=== PATIENT | female | born 2000 | race Caucasian/White ===

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

== ENCOUNTER → 2021-03-10 | Outpatient (CLI) | payer BC ==
--- NOTE | 2021-03-10 22:18 | US ---
EXAMINATION TYPE: US pelvis complete transvag DATE OF EXAM: 03/10/2021 COMPARISON: NONE CLINICAL HISTORY: N92.6 Irregular menstruation; R19.09. Irregular menses TECHNIQUE: Transvaginal (TV) and Transabdominal (TA) . Transabdominal sonographic images of the pel vis were acquired. Transvaginal sonographic images were medically necessary to better assess the fol lowing anatomy: Ovaries, endometrium Date of LMP: 02/03/2021, G0 EXAM MEASUREMENTS: Uterus: 7.2 x 4.0 x 3.5 cm Endometrial Stripe: 1.0 cm Right Ovary: 4.1 x 2.5 x 1.7 cm Left Ovary: 3.4 x 1.9 x 2.3 cm 1. Uterus: Retroverted wnl 2. Endometrium: wnl 3. Right Ovary: Multiple follicles seen. Possible echogenic areas visualized on ovarian border of pe lvic free fluid, artifact vs abnormality 4. Left Ovary: Multiple follicles seen 5. Bilateral Adnexa: Free fluid seen adjacent to right ovary 6. Posterior cul-de-sac: free fluid Cervix- fluid seen within endometrial canal Retroverted uterus. Endometrial stripe within normal limits for secretory phase of menstrual cycle. F ree fluid in pelvis extends towards right adnexa is nonspecific. Both ovaries seen with scattered peripheral follicles bilaterally. No suspicious solid or cystic adne xal mass. IMPRESSION: Nonspecific free fluid in pelvis otherwise unremarkable study.
== END | disposition home or self-care (01) ==
LOC: RADUSWWP 16:19
PROVIDERS: ATTEND Family Medicine
DX: N92.6 Irregular menstruation, unspecified (principal); R19.09 Other intra-abdominal and pelvic swelling, mass and lump
CPT/HCPCS: 76830; 76856

== ENCOUNTER → 2021-05-31 | Outpatient (CLI) | payer BC ==
--- NOTE | 2021-05-31 16:18 | XR ---
EXAMINATION TYPE: XR abdomen 2V DATE OF EXAM: 05/31/2021 COMPARISON: None INDICATION: Left lower quadrant firmness TECHNIQUE: Single view abdomen frontal projection FINDINGS: There is a normal bowel gas pattern. Psoas margins are normal. No organomegaly is present. IMPRESSION: 1. Unremarkable Abdomen
== END | disposition home or self-care (01) ==
LOC: RADXRYALE 14:14
PROVIDERS: ATTEND Physician Assistant Medical
DX: R10.814 Left lower quadrant abdominal tenderness (principal)
CPT/HCPCS: 74019

== ENCOUNTER → 2024-12-04 | Outpatient (CLI) | payer BC ==
--- NOTE | 2024-12-04 16:22 | XR ---
Abdomen: HISTORY: Abdominal pain COMPARISON: 05/31/2021. TECHNIQUE: 2 upright views of the abdomen were obtained. FINDINGS: The bowel gas pattern is nonspecific and there is no evidence of obstruction. There is a moderate amount stool within the colon. There is a 4.8 mm calcification in the left hemipelvis which could represent a left ureteral calculus . The osseous structures are intact. IMPRESSION: 1. 4.8 mm calcification in the left hemipelvis which could represent a left distal ureteral calculus. 2. Nonspecific bowel gas pattern 3. Moderate amount of stool within the colon. [facility], Workstation: [facility], 12/04/2024 4:19 PM
== END | disposition home or self-care (01) ==
LOC: RADXRYALE 15:55
PROVIDERS: ATTEND Physician Assistant Medical
DX: R10.812 Left upper quadrant abdominal tenderness (principal); R10.814 Left lower quadrant abdominal tenderness; R19.5 Other fecal abnormalities; M61.452 Other calcification of muscle, left thigh
CPT/HCPCS: 74019

== ENCOUNTER → 2024-12-05 | Outpatient (CLI) | payer BC ==
--- NOTE | 2024-12-05 15:34 | CT ---
EXAMINATION TYPE: CT abdomen pelvis wo con DATE OF EXAM: 12/05/2024 3:26 PM COMPARISON: None. CLINICAL INDICATION: Female, 24 years old with history of M54.6 pain tspine R10.812 LUQ Abd R10.814 L LQ Abd, abdominal/flank pain TECHNIQUE: Axial images were obtained from above the diaphragm to the pubic rami in the axial plane a t 5 mm thick sections. Reconstructed images are reviewed on the computer in the coronal plane. CONTRAST: mL of . Study performed without Oral Contrast DLP: 221.4 mGycm, Automated exposure control for dose reduction was used. FINDINGS: Limited CT sections are obtained the lung bases. The lung bases are clear. CT ABDOMEN: Liver: Normal Spleen: Normal Pancreas: Normal Adrenal glands: The adrenal glands are normal. Gallbladder: Normal Kidneys: No masses are evident. No hydronephrosis is present. No cysts are present. No renal or ur eteral calcifications are evident. Aorta: Normal Inferior vena cava: Normal. CT PELVIS: Loops of bowel within the abdomen and pelvis are normal. There are loops of bowel which are incom pletely distended or lack oral contrast limiting their evaluation. Appendix: Normal as visualized. Urinary bladder: Decompressed with limited evaluation. Genitourinary structures: Uterus and adnexa appear within normal limits. Minimal physiologic fluid ma y be within the cul-de-sac. Osseous structures: No suspicious lytic or sclerotic lesions. IMPRESSION: 1. No definite renal or ureteral stones evident. 2. No suspicious abnormality to account for left upper or lower quadrant pain [facility], , 12/05/2024 3:31 PM
== END | disposition home or self-care (01) ==
LOC: RADCTMAIN 12:50
PROVIDERS: ATTEND Family Medicine
DX: M54.6 Pain in thoracic spine (principal); R10.812 Left upper quadrant abdominal tenderness; R10.814 Left lower quadrant abdominal tenderness
CPT/HCPCS: 74176

== ENCOUNTER 2024-12-30 09:54 | Day surgery (SDC) | payer BC ==
--- NOTE | 2024-12-30 07:49 | P.HPIHPCON ---
History of Present Illness H&P Date: 12/30/24 Chief Complaint: Left flank pain This is a 24-year-old female with history of persistent left-sided flank pain. Underwent a CT abdomen and pelvis that showed evidence of possible left distal ureteral stone versus a phlebolith. Discussed with her given the persistent symptoms the option of a retrograde pyelogram to assess if this is a distal stone. Discussed if a filling defect is observed and we will proceed with a left-sided ureteroscopy with holmium laser. She is aware of the risk which include but not limited to bleeding, infection, injury to the ureter. Discussed also potential that the pain is not related to a stone. She understood all the risk and agreed to proceed Consent for Procedure: I have explained the operation/procedure to the patient, including the risks, benefits, side effects, alternative therapies (including not receiving the proposed treatment or service), the likelihood of the patient achieving his/her goals, and potential recuperation problems for the procedure/sedation/analgesia, as well as any blood products, if indicated. I also explained to the patient the risks, benefits and side effects of the alternatives, as well as the risks related to not receiving the proposed procedure, care, treatment, or services. Past Medical History Past Medical History: No Reported History Additional Past Medical History / Comment(s): kidney stones History of Any Multi-Drug Resistant Organisms: MRSA Date of last positivie culture/infection: 2017 MDRO Source:: leg Additional Past Surgical History / Comment(s): tear duct Past Anesthesia/Blood Transfusion Reactions: No Reported Reaction Smoking Status: Never smoker - Past Family History Father Family Medical History: No Reported History Medications and Allergies Home Medications Medication Instructions Recorded Confirmed Type No Known Home Medications 12/25/24 12/25/24 History Allergies Allergy/AdvReac Type Severity Reaction Status Date / Time No Known Allergies Allergy Verified 12/25/24 12:12 Surgical - Exam - General no distress, no pain - Eyes normal ocular movement, no pale - ENT normal nares, normal mucosa - Respiratory normal expansion, normal respiratory effort - Abdomen Abdomen: soft, non tender Assessment and Plan Assessment: OR for left sided retrograde pyelogram, possible ureteroscopy with holmium laser lithotripsy stone basketing and stent insertion
[~2024-12-30 09:54] MED LIST: HYDROmorphone 0.5 MG/0.5 ML SYRINGE IVP PRN
--- NOTE | 2024-12-30 10:28 | XR ---
EXAMINATION TYPE: XR KUB DATE OF EXAM: 12/30/2024 10:18 AM CLINICAL HISTORY: Ureter stone TECHNIQUE: Two supine KUB images of the abdomen are obtained. COMPARISON: CT abdomen and pelvis December 05, 2024. FINDINGS: No definitive nephrolithiasis. Overall nonobstructive bowel gas pattern. Scoliotic curvature near the lumbosacral junction is redemo nstrated. Lung bases are clear. IMPRESSION: As above. [facility], , 12/30/2024 10:26 AM
[2024-12-30] MEDS: IV FLUID CONTINUATION 1,000 ML IV ONE (10:51)
[2024-12-30] MEDS: LACTATED RINGERS 1,000 ML IV SCH (10:53)
[2024-12-30] MEDS: DEXAMETHASONE SOD PHOSPHATE 4 MG/ML 1 ML VIAL IV ONE (11:46)
[2024-12-30] MEDS: ONDANSETRON 4 MG/2 ML VIAL IVP ONE (11:46)
[2024-12-30] MEDS ORDERED: PROPOFOL 10 MG/ML 20 ML VIAL IV ONE (12:00)
[2024-12-30] MEDS ORDERED: diphenhydrAMINE 50 MG/ML 1 ML VIAL ONE (12:00)
[2024-12-30] MEDS ORDERED: fentaNYL (PF) 50 MCG/ML 2 ML AMP ONE (12:00)
[2024-12-30] MEDS ORDERED: SUCCINYLCHOLINE CHLORIDE 200 MG/10 ML VIAL IV ONE (12:00)
[2024-12-30] MEDS ORDERED: LIDOCAINE 1% INJ 10MG/ML (20 ML MDV) ONE (12:00)
[2024-12-30] MEDS: IOPAMIDOL-370 100ML BTL MISCELLANE ONE (12:43)
--- NOTE | 2024-12-30 13:01 | P.OP ---
Date of Procedure: 12/30/24 Preoperative Diagnosis: Left ureteral stone Postoperative Diagnosis: Same Procedure(s) Performed: Cystoscopy, left retrograde pyelogram, ureteroscopy Implants: None Anesthesia: ROEA Surgeon: Harshad Iverson Estimated Blood Loss (ml): 1 Pathology: none sent Condition: stable Disposition: PACU Indications for Procedure: This is a 24-year-old female with history of persistent left-sided flank pain. Underwent a CT abdomen and pelvis that showed evidence of possible left distal ureteral stone versus a phlebolith. Discussed with her given the persistent symptoms the option of a retrograde pyelogram to assess if this is a distal stone. Discussed if a filling defect is observed and we will proceed with a left-sided ureteroscopy with holmium laser. She is aware of the risk which include but not limited to bleeding, infection, injury to the ureter. Discussed also potential that the pain is not related to a stone. She understood all the risk and agreed to proceed Operative Findings: Normal left retrograde pyelogram, no stone seen along the course of the ureter Description of Procedure: Patient brought to the operating room, general anesthesia was induced. He was prepped and draped in sterile fashion and placed in dorsolithotomy position. Cystoscopy fitted 21 Turkish sheath was inserted per urethra, cystoscopy was performed which showed no abnormality within the bladder. The left ureteral orifice was identified and intubated with an open-ended catheter. Retrograde pyelogram was performed which showed no filling defect along the course of the ureter or any hydronephrosis. Next a semirigid ureteroscope was inserted per urethra and advanced up the left ureteral orifice, advance the scope atraumatically all the way up to the UPJ which showed no evidence of stones, pullback ureteroscopy was performed showed no abnormality within the ureter or any ureteral stones. The bladder was emptied at the end of the case. Patient tolerated procedural was taken to recovery in stable condition.
--- NOTE | 2024-12-30 13:09 | FL ---
EXAMINATION TYPE: FL urography retrograde DATE OF EXAM: 12/30/2024 COMPARISON: NONE HISTORY: Kidney stone TECHNIQUE: Fluoroscopy. FINDINGS: Fluoroscopic guidance was provided during cystoscopy and lithotripsy procedure performed joy Ricci. A total of 5.4 seconds of fluoroscopic time was utilized during the procedure and 1 sp ot images was acquired. Total dose area product (DAP) in uGy*m?, mGy*cm? (or similar): n/a. Images a cquired show opacification of the collecting system and proximal ureter with mild hydronephrosis. IMPRESSION: As Above. [facility], , 12/30/2024 1:07 PM
[2024-12-30 13:43] VITALS: TEMP 97
[2024-12-30] MEDS: METOPROLOL TARTRATE 5 MG/5 ML VIAL IVP STA (14:37)
[2024-12-30 15:03] VITALS: BP 102/70; PULSE 99; RESP 16
== END 2024-12-30 15:21 | disposition home or self-care (01) ==
LOC: OR 09:54
PROVIDERS: ATTEND Urology
DX: N20.1 Calculus of ureter (principal); Z88.8 Allergy status to other drugs, medicaments and biological substances
CPT/HCPCS: 74420; 74018; 52351; J1100; J2405; J0690; Q9967; 81025